=== PATIENT | female | born 1985 | race Caucasian/White ===

== ENCOUNTER 2016-11-28 18:39 | Emergency (ER) | payer OTHER ==
[~2016-11-28] VITALS: Wt 90.7 kg
[~2016-11-28 18:39] MED LIST: 'PARAFON FORTE500 M1 PO; CATAFLAM50 MG PO; CLARITIN-D 10 M1 T21 PO; HYDROCODONE BIT1 T11 PO; NAPROSYN500 MG PO; PREDNICOT10 MG PO; PREDNISONE20 MG PO; PROAIR HFA0.09 MG/AC INH; ROBAXIN-750750 MG PO; ROBITUSSIN AC 110 ML PO; ROBITUSSIN DM 105 ML PO; VICODIN 5/500 505 MG PO; ZITHROMAX Z PA250 MG PO; ZITHROMAX250 MG PO; ZYRTEC10 MG PO
[2016-11-28] MEDS ORDERED: CLARITIN-D 12 H1 TAB PO (19:17)
[2016-11-28] MEDS ORDERED: CORTISPORIN SUS10 ML OT (19:18)
== END 2016-11-28 19:29 | disposition home or self-care (01) ==
LOC: ED 18:39
DX: H65.02 Acute serous otitis media, left ear (principal); F17.200 Nicotine dependence, unspecified, uncomplicated; Z88.1 Allergy status to other antibiotic agents; Z91.040 Latex allergy status

== ENCOUNTER 2017-04-15 14:27 | Emergency (ER) | payer OTHER ==
[~2017-04-15] VITALS: Ht 157.4 cm; Wt 88.5 kg
[~2017-04-15 14:27] MED LIST changes: +CLARITIN-D 12 H1 TAB PO; +CORTISPORIN SUS10 ML OT
[2017-04-15] MEDS ORDERED: ZYRTEC10 MG PO (14:47)
[2017-04-15] MEDS ORDERED: FLONASE ALLERG9.9 ML NAS (14:47)
[2017-04-15] MEDS ORDERED: ZITHROMAX250 MG PO (14:47)
== END 2017-04-15 14:49 | disposition home or self-care (01) ==
LOC: ED 14:27
DX: J01.00 Acute maxillary sinusitis, unspecified (principal); J02.9 Acute pharyngitis, unspecified; F17.200 Nicotine dependence, unspecified, uncomplicated; Z88.1 Allergy status to other antibiotic agents; Z91.040 Latex allergy status

== ENCOUNTER 2017-08-12 12:53 | Emergency (ER) | payer OTHER ==
[~2017-08-12] VITALS: Ht 157.4 cm; Wt 97.5 kg
[~2017-08-12 12:53] MED LIST changes: +FLONASE ALLERG9.9 ML NAS
[2017-08-12] MEDS ORDERED: NAPROSYN500 MG PO (13:09)
== END 2017-08-12 13:05 | disposition home or self-care (01) ==
LOC: ED 12:53
DX: M25.561 Pain in right knee (principal); M25.461 Effusion, right knee; R03.0 Elevated blood-pressure reading, without diagnosis of hypertension; Z98.890 Other specified postprocedural states; Z88.1 Allergy status to other antibiotic agents; Z91.040 Latex allergy status; Z79.899 Other long term (current) drug therapy; W01.0XXA Fall on same level from slipping, tripping and stumbling without subsequent striking against object, initial encounter; Y93.89 Activity, other specified; Y92.89 Other specified places as the place of occurrence of the external cause; Y99.9 Unspecified external cause status

== ENCOUNTER → 2017-08-17 | Outpatient (CLI) | payer OTHER | END | disposition home or self-care (01) | LOC: MRI 12:57 | DX: S83.241A Other tear of medial meniscus, current injury, right knee, initial encounter (principal); X58.XXXA Exposure to other specified factors, initial encounter; Y93.89 Activity, other specified; Y92.89 Other specified places as the place of occurrence of the external cause; Y99.8 Other external cause status ==

== ENCOUNTER 2019-12-26 10:58 | Emergency (ER) | payer OTHER ==
[~2019-12-26] VITALS: Wt 115.7 kg
[2019-12-26] MEDS ORDERED: NAPROSYN500 MG PO (12:39)
== END 2019-12-26 13:10 | disposition home or self-care (01) ==
LOC: ED 10:58
DX: S86.911A Strain of unspecified muscle(s) and tendon(s) at lower leg level, right leg, initial encounter (principal); Z88.8 Allergy status to other drugs, medicaments and biological substances; Z91.040 Latex allergy status; Z79.899 Other long term (current) drug therapy; X58.XXXA Exposure to other specified factors, initial encounter; Y93.89 Activity, other specified; Y92.89 Other specified places as the place of occurrence of the external cause; Y99.8 Other external cause status